=== PATIENT | male | born 1975 | race Caucasian/White ===

== ENCOUNTER 2016-08-07 19:11 | Emergency (ER) | payer BC ==
[2016-08-07] MEDS ORDERED: CYCLOBENZAPRINE 10 MG TABLET PO STA (20:43)
[2016-08-07] MEDS ORDERED: CYCLOBENZAPRINE 10 MG TABLET PO ONE (20:44)
== END 2016-08-07 20:50 | disposition home or self-care (01) ==
DX: M54.6 Pain in thoracic spine (principal); R03.0 Elevated blood-pressure reading, without diagnosis of hypertension
CPT/HCPCS: 99283; A9270

== ENCOUNTER 2016-08-29 20:09 | Outpatient (CLI) | payer BC | END 2016-08-29 20:10 | disposition home or self-care (01) | DX: H72.03 Central perforation of tympanic membrane, bilateral (principal) ==

== ENCOUNTER 2017-05-14 14:46 | Outpatient (CLI) | payer OTHER ==
--- NOTE | 2017-05-14 16:44 | XRAY Report ---
DATE OF SERVICE: 05/14/2017 TWO VIEW RIGHT FOOT: 05/14/2017 CLINICAL INDICATION: Pain. FINDINGS: Frontal and lateral views of the right foot demonstrate no evidence of fracture or disloca tion. The joint spaces are preserved. A small posterior calcaneal spur is incidentally noted. IMPRESSION: NO EVIDENCE OF FRACTURE. TD: 05/14/2017 17:42
== END 2017-05-14 14:47 | disposition home or self-care (01) ==
LOC: DI 14:46
PROVIDERS: ATTEND Physician Assistant Medical
DX: M79.671 Pain in right foot (principal)

== ENCOUNTER 2017-10-25 10:48 | Day surgery (SDC) | END 2017-10-25 15:01 | disposition home or self-care (01) | CPT/HCPCS: 36415; 44970; 74177; 80053; 81003; 83690; 85025; 96365; 99283; 99284; A9270; J1170; J7120; J8540; Q9967 ==

== ENCOUNTER 2020-12-07 12:14 | Outpatient (CLI) | payer BC, OTHER ==
--- NOTE | 2020-12-07 17:46 | XRAY Report ---
PROCEDURE: Abdomen 3 View X-Ray INDICATIONS: LUQ PX TECHNIQUE: 1 view of the abdomen were acquired. COMPARISON: Correlation is made with prior abdomen pelvis CT, 10/25/2017 FINDINGS: Surgical changes and devices: None. Bowel: No pneumoperitoneum. The bowel gas pattern is normal. Soft tissues: No masses; visualized solid organ contours appear normal in size. No suspicious abdom inal calcifications. Bones: No suspicious bony abnormalities. Minimal to mild levoconvex thoracal lumbar sclerotic curva ture can be seen. IMPRESSION: No significant plain film abnormality can be seen. Reviewed by: Dorian Siegel MD on 12/07/2020 4:45 PM AKDT Approved by: Dorian Siegel MD on 12/07/2020 4:45 PM AKDT Station ID: [id number]
== END 2020-12-07 23:59 | disposition home or self-care (01) ==
LOC: DI.N 12:14
PROVIDERS: ATTEND Physician Assistant Medical
DX: R10.12 Left upper quadrant pain (principal)

== ENCOUNTER 2020-12-21 08:00 | Outpatient (CLI) | payer BC | END 2020-12-21 23:59 | disposition home or self-care (01) | LOC: LAB.S 08:00 | PROVIDERS: ATTEND Physician Assistant | DX: J02.9 Acute pharyngitis, unspecified (principal); Z20.822 Contact with and (suspected) exposure to COVID-19 | CPT/HCPCS: 87070 ==

== ENCOUNTER 2021-09-26 12:56 | Emergency (ER) | payer BC, MEDICAID ==
--- NOTE | 2021-09-26 13:14 | ED Physician Documentation ---
PD HPI HEADACHE - Stated complaint Stated Complaint: CONGESTION,SWOLLEN GLANDS - Chief complaint Chief Complaint: Heent - History obtained from History obtained from: Patient - Additional information Additional information: 46-year-old gentleman with history of cleft lip and palate repair presents with a weeks worth of illness marked by sinus congestion, resolved sore throat and productive cough which is worsening. No fevers. He is feeling short of breath and he notes his glands are swollen. He was seen at an urgent care and given steroids which were not helpful. Two home COVID tests were negative. Review of Systems Constitutional: reports: Fatigue. denies: Fever, Chills Nose: reports: Rhinorrhea / runny nose, Congestion, Sinus pressure / pain Throat: reports: Sore throat Respiratory: reports: Dyspnea, Cough PD PAST MEDICAL HISTORY - Past Medical History Endocrine/Autoimmune: None - Past Surgical History Past Surgical History: Yes General: Other HEENT: Myringotomy (tubes) - Present Medications Home Medications: Ambulatory Orders Medication Instructions Recorded Confirmed Cetirizine [ZyrTEC] 10 mg PO DAILY PRN 08/07/16 10/25/17 Fluticasone [Flonase] 1 sprays HEVER DAILY 08/07/16 08/07/16 Loratadine [Claritin] 10 mg PO DAILY PRN 08/07/16 10/25/17 Cyclobenzaprine [Flexeril] 10 mg PO TID PRN 10/25/17 10/25/17 Multivitamin [Theragran] 1 each PO DAILY 10/25/17 10/25/17 Amoxicillin 500 mg PO TID #30 cap 09/26/21 Benzonatate [Tessalon] 200 mg PO QID PRN #20 cap 09/26/21 Guaifenesin/Pseudoephedrne HCl 1 each PO BID PRN #20 ea 09/26/21 [Mucinex D ER 600-60 mg Tablet] - Allergies Allergies/Adverse Reactions: Allergies Allergy/AdvReac Type Severity Reaction Status Date / Time No Known Drug Allergies Allergy Verified 09/26/21 13:05 - Social History Does the pt smoke?: No Smoking Status: Never smoker Does the pt drink ETOH?: No Does the pt have substance abuse?: No - Immunizations Immunizations are current?: Yes - POLST Patient has POLST: No PD ED PE NORMAL - Vitals Vital signs reviewed: Yes - General General: Alert and oriented X 3, No acute distress - HEENT HEENT: Other (Chronic appearing perforations of both TMs, left worse than right without otorrhea. Tender maxillary sinuses. He has large tonsils and a bipartite uvula.) - Neck Neck: Supple, no meningeal sign, No bony TTP, Other (Moderate anterior cervical adenopathy) - Respiratory Respiratory: No respiratory distress, Clear bilaterally - Neuro Neuro: Alert and oriented X 3, Normal speech Results - Vitals Vitals: Vital Signs - 24 hr 09/26/21 13:00 Temperature 37.1 C Heart Rate 94 Respiratory 14 Rate Blood Pressure 102/86 H O2 Saturation 98 Oxygen O2 Source Room air Departure - Departure Disposition: Home, Self Care Clinical Impression: Sinusitis Condition: Good Record reviewed to determine appropriate education?: Yes Instructions: ED Sinusitis Abx Tx Prescriptions: Amoxicillin 500 mg PO TID #30 cap Guaifenesin/Pseudoephedrne HCl [Mucinex D ER 600-60 mg Tablet] 1 each PO BID PRN #20 ea PRN Reason: congestion Benzonatate [Tessalon] 200 mg PO QID PRN #20 cap PRN Reason: Cough Comments: I sent your prescriptions electronically to [facility] in [place]. Recheck with your doctor at the end of the week or early next week if not better, return for new or worsening symptoms.
[2021-09-26 13:23] VITALS: BP 102/86
== END 2021-09-26 13:43 | disposition home or self-care (01) ==
LOC: ED 12:56
DX: J01.90 Acute sinusitis, unspecified (principal)
CPT/HCPCS: 99281; 99283

== ENCOUNTER 2022-07-31 08:00 | Outpatient (CLI) | payer BC, MEDICAID ==
[2022-07-31 17:38] LABS: BASOPHILS % (AUTO) 0.4 %; EOSINOPHILS # (AUTO) 0.2 10^3/uL (0.0-0.7); HCT - HEMATOCRIT 41.5 % (42.0-52.0); HGB - HEMOGLOBIN 13.8 g/dL (14.0-18.0); LYMPHOCYTES # (AUTO) 2.1 10^3/uL (1.5-3.5); LYMPHOCYTES % (AUTO) 37.5 %; MEAN CORPUSCULAR HEMOGLOBIN 30.5 pg (27.0-31.0); MEAN CORPUSCULAR HGB CONC 33.3 g/dL (32.0-36.0); MEAN CORPUSCULAR VOLUME 91.8 fL (80.0-94.0); MEAN PLATELET VOLUME 9.9 fL (7.4-11.4); MONOCYTES # (AUTO) 0.4 10^3/uL (0.0-1.0); MONOCYTES % (AUTO) 6.5 %; NEUTROPHILS % (AUTO) 52.4 %; PLT - PLATELET COUNT 272 10^3/uL (130-450); RED BLOOD COUNT 4.52 10^6/uL (4.70-6.10); RED CELL DISTRIBUTION WIDTH 11.8 % (12.0-15.0); WHITE BLOOD COUNT 5.7 x10^3/uL (4.8-10.8)
[2022-07-31 18:15] LABS: ALBUMIN 4.5 g/dL (3.2-5.5); ALBUMIN/GLOBULIN RATIO 1.6 (1.0-2.2); BILIRUBIN,TOTAL 0.4 mg/dL (0.2-1.0); CALCIUM 9.2 mg/dL (8.5-10.3); CREATININE 0.9 mg/dL (0.6-1.2); POTASSIUM 3.7 mmol/L (3.5-5.0); TOTAL PROTEIN 7.4 g/dL (6.7-8.2)
== END 2022-07-31 23:59 | disposition home or self-care (01) ==
LOC: LAB.N 08:00
PROVIDERS: ATTEND Registered Nurse
DX: R10.12 Left upper quadrant pain (principal)
CPT/HCPCS: 36415; 80053; 83690; 85025

== ENCOUNTER 2022-08-03 08:56 | Outpatient (CLI) | payer BC ==
--- NOTE | 2022-08-03 13:27 | XRAY Report ---
PROCEDURE: Chest 2 View X-Ray INDICATIONS: RIB PAIN,LEFT SIDED/LUQ PAIN TECHNIQUE: 2 views of the chest were acquired. COMPARISON: None. FINDINGS: Surgical changes and devices: None. Lungs and pleura: No pleural effusions or pneumothorax. Lungs are clear. Mediastinum: Mediastinal contours appear normal. Heart size is normal. Bones and chest wall: No suspicious bony lesions. Overlying soft tissues appear unremarkable. IMPRESSION: No acute cardiopulmonary abnormality. Reviewed by: Kaden Swanson MD on 08/03/2022 1:25 PM PDT Approved by: Kaden Swanson MD on 08/03/2022 1:25 PM PDT Station ID: [id number]
== END 2022-08-03 08:57 | disposition home or self-care (01) ==
LOC: DI 08:56
PROVIDERS: ATTEND Registered Nurse
DX: R07.81 Pleurodynia (principal); R10.12 Left upper quadrant pain